=== PATIENT | male | born 1990 | race African-American/Black ===

== ENCOUNTER 2016-07-29 10:09 | Emergency (ER) | payer SELFPAY ==
[~2016-07-29] VITALS: Ht 177.8 cm; Wt 68.0 kg
[2016-07-29 10:25] VITALS: BP 134/73; PULSE 70; RESP 16; TEMP 98.6; O2SAT 100
--- NOTE | 2016-07-29 11:34 | PD ---
HPI . patient wants to be checked for STD Chief Complaint: Medical Clearance Time Seen by Provider: 11:33 Travel History International Travel<30 days: No Contact w/Intl Traveler<30days: No Traveled to known affect area: No History of Present Illness HPI 25-year-old male here telling me that he wants to be tested for STDs. He is completely asymptomatic. He denies any penile discharge or dysuria. He has no other complaints. History Past Medical Histgory Medical History: Denies Significant Hx Past Surgical History Surgical History: No Previous Surgery Family History Family History: Negative Social History Alcohol Use: Yes Tobacco Use: No Allergies-Medications (Allergen,Severity, Reaction): Coded Allergies: No Known Allergies (Unverified , 07/29/16) Reported Meds & Prescriptions Reported Meds & Active Scripts Active No Active Prescriptions or Reported Medications Review of Systems General / Constitutional: No: Fever Eyes: No: Visual changes HENT: No: Headaches Cardiovascular: No: Chest Pain or Discomfort Respiratory: No: Shortness of Breath Gastrointestinal: No: Abdominal Pain Genitourinary: No: Dysuria Musculoskeletal: No: Pain Skin: No Rash Neurologic: No: Weakness Psychiatric: No: Depression Endocrine: No: Polydipsia Hematologic/Lymphatic: No: Easy Bruising Physical Exam Narrative GENERAL: AAO x 3, no acute distress, Well-nourished, well-developed patient. SKIN: Warm and dry. No visible rashes or bruising. HEAD: Normocephalic and atraumatic. EYES: No scleral icterus. No injection or drainage. ENT: No nasal drainage noted. Mucous membranes pink. Airway patent. NECK: Supple, trachea midline. No JVD. CARDIOVASCULAR: Regular rate and rhythm without murmurs, gallops, or rubs. RESPIRATORY: Breath sounds equal bilaterally. No accessory muscle use. No rhonchi or rales. GASTROINTESTINAL: Abdomen soft, non-tender, nondistended. EXTREMITIES: No cyanosis or edema. GENITALS: Kiesha MILES present: no penile discharge or abn. BACK: Nontender without obvious deformity. No CVA tenderness. PSYCH: AAO x 3, normal affect. Data Data Last Documented VS Vital Signs Date Time Temp Pulse Resp B/P Pulse Ox O2 Delivery O2 Flow Rate FiO2 07/29/16 10:25 98.6 70 16 134/73 100 MDM Medical Screen Exam Complete: Yes Emergency Medical Condition: No Differential Diagnosis STD screening, STD exposure, less likely Urethritis Narrative Course 25-year-old male here telling me that he wants to be tested for STDs. He is completely asymptomatic. He denies any penile discharge or dysuria. He has no other complaints. A medical screening exam was performed: At the time of evaluation the presenting medical condition was determined not to be of an emergent nature. The patient was given the option of receiving additional care, but declined. Patient was given options for additional community resources from which to obtain care. The Patient Has Been advised to seek medical attention for their presenting complaint. The patient has been advised to return to the ER at any time if an emergent condition develops. Primary Impression: Encounter for medical screening examination Scripts No Active Prescriptions or Reported Meds Condition: Noa Lindquist Jul 29, 2016 11:34
== END 2016-07-29 11:45 | disposition left against medical advice (07) ==
LOC: NEPK 10:09
DX: Z11.3 Encounter for screening for infections with a predominantly sexual mode of transmission (principal)
CPT/HCPCS: 99281